=== PATIENT | female | born 1970 | race Caucasian/White ===

== ENCOUNTER 2018-12-14 11:17 | Outpatient (CLI) | payer MEDICAID ==
[~2018-12-14 11:17] MED LIST: HYDR-5123 PO; IBUP-1842 PO; LORA-476 PO
== END 2018-12-14 20:24 | disposition home or self-care (01) ==
LOC: MRD 11:17
DX: R06.00 Dyspnea, unspecified (principal)
CPT/HCPCS: 71045

== ENCOUNTER 2018-12-15 12:45 | Emergency (ER) | payer MEDICAID ==
[~2018-12-15] VITALS: Ht 167.6 cm; Wt 80.7 kg
[2018-12-15 12:57] VITALS: BP 119/85
--- NOTE | 2018-12-15 13:03 | NUR ---
PATIENT AMBULATED TO BED 11.
--- NOTE | 2018-12-15 13:08 | NUR ---
PT C/O PALPITATIONS WITH DIZZINESS AND SOB X 10 MINS. PT STATED HAVING PALPITATIONS AND SOB AFTER DOCTOR PLACED THE HEART MONITOR AND LEFT THE CLINIC. ALSO STATED CP, NO RADIATION. PT NOT AWARE WHY MD PLACED HEART MONITOR, STATED MAYBE BECAUSE HER BLE SWOLLEN. DENIES N/V/D; SKIN IS PINK/WARM/DRY; LEG SWELLING 3+; AAOX4 WITH EVEN AND STEADY GAIT; LUNGS CLEAR BL; HR EVEN AND REGULAR; PT DENIES ANY FEVER OR COUGH AT THIS TIME; PATIENT STATES PAIN OF 9/10 AT THIS TIME; VSS; PATIENT POSITIONED FOR COMFORT; HOB ELEVATED; BEDRAILS UP X2; BED DOWN. ER MD MADE AWARE OF PT STATUS.
--- NOTE | 2018-12-15 13:11 | NUR ---
DR. LITTLE EVALUATING PT BEDSIDE
[2018-12-15] MEDS ORDERED: NACL 0.9% 1,000 ML IV ONE (13:20)
[2018-12-15] MEDS ORDERED: ASPIRIN 81 MG TAB.CHEW PO ONE (13:20)
--- NOTE | 2018-12-15 13:40 | NUR ---
IV, 20G, WAS ESTABLISHED ON RIGHT AC.
[2018-12-15 13:41] LABS: BASOPHILS % (AUTO) 0.7 % (0.0-2.0); EOSINOPHILS # (AUTO) 0.1 K/uL (0-0.4); EOSINOPHILS % (AUTO) 1.1 % (0.0-4.0); HEMATOCRIT 36.8 % (36-48); HEMOGLOBIN 12.5 g/dL (12.0-16.0); LYMPHOCYTES % (AUTO) 37.5 % (20.5-51.1); MEAN CORPUSCULAR HEMOGLOBIN 30 pg (27-31); MEAN CORPUSCULAR HGB CONC 34 g/dL (33-37); MEAN CORPUSCULAR VOLUME 88.3 fL (80-94); MONOCYTES # (AUTO) 0.5 K/uL (0.8-1.0); MONOCYTES % (AUTO) 9.5 % (1.7-9.3); NEUTROPHILS # (AUTO) 2.7 K/uL (1.8-7.7); NEUTROPHILS % (AUTO) 51.2 % (42.2-75.2); PLATELET COUNT (AUTO) 220 K/uL (140-450); RED BLOOD CELL COUNT(AUTO) 4.17 MIL/uL (4.20-5.40); RED CELL DISTRIBUTION WIDTH 13.2 % (11.6-13.7); WHITE BLOOD COUNT (AUTO) 5.3 K/uL (4.8-10.8)
[2018-12-15 14:17] LABS: ANION GAP 10.6 (8-16); CARBON DIOXIDE 28.5 mmol/L (21-32); POTASSIUM 4.1 mmol/L (3.5-5.1)
[2018-12-15 14:18] LABS: ALBUMIN 3.4 g/dL (3.4-5.0); CREATININE 0.8 mg/dL (0.6-1.3); TOTAL BILIRUBIN 0.5 mg/dL (0.0-1.0)
[2018-12-15 14:39] LABS: APPEARANCE,URINE HAZY (CLEAR); BILIRUBIN,URINE 1+ (NEGATIVE); BLOOD, URINE NEGATIVE (NEGATIVE); COLOR,URINE DARK YELLOW (YELLOW); LEUKOCYTE ESTERASE ,URINE NEGATIVE (NEGATIVE); NITRITE, URINE NEGATIVE (NEGATIVE); UGLUCOSE NEGATIVE (NEGATIVE)
[2018-12-15 15:51] VITALS: BP 108/70
--- NOTE | 2018-12-15 15:51 | NUR ---
Patient discharged with v/s stable. Written and verbal after care instructions given and explained. Patient alert, oriented and verbalized understanding of instructions. Ambulatory with steady gait. All questions addressed prior to discharge. ID band removed. Patient advised to follow up with PMD. Rx ofXANAX 0.5 MG, MOTRIN 800 MG given. Patient educated on indication of medication including possible reaction and side effects. Opportunity to ask questions provided and answered.
--- NOTE | 2018-12-20 05:56 | NUR ---
Late entry. IV fluids ended at 1550.
== END 2018-12-15 15:51 | disposition home or self-care (01) ==
LOC: MED 12:45
DX: R06.4 Hyperventilation (principal); J45.909 Unspecified asthma, uncomplicated; I10 Essential (primary) hypertension; Z79.899 Other long term (current) drug therapy
CPT/HCPCS: 36415; 71045; 80053; 81003; 83880; 84484; 85025; 93005; 99284; J7030; Q0092